=== PATIENT | male | born 1955 | race Caucasian/White ===

== ENCOUNTER 2017-09-26 06:57 | Emergency (ER) | payer OTHER ==
[~2017-09-26] VITALS: Ht 180.3 cm; Wt 95.2 kg
[~2017-09-26 06:57] MED LIST: ASPIRIN325 MG PO; ATENOLOL50 MG PO; LISINOPRIL20 MG PO; REVATIO20 MG PO; SYNTHROID150 MCG PO
[2017-09-26] MEDS ORDERED: CANDESARTAN-HC1 EACH PO (07:09)
--- NOTE | 2017-09-26 19:17 | EKG ---
[facility] [address] [facility] [place] [address] Signed Sinus bradycardia Nonspecific ST and T wave abnormality Abnormal ECG No previous ECGs available Confirmed by GEMA RODRIGUEZ MD ([id number]) on 09/26/2017 7:17:39 PM Electronically Signed By: GEMA RODRIGUEZ MD 09/26/171916 PATIENT NAME: CHARITY MORA Electrocardiogram DATE OF : 55 PHYSICIAN: GEMA RODRIGUEZ MD REPORT #: [id number] REPORT IS CONFIDENTIAL AND NOT TO BE RELEASED WITHOUT AUTHORIZATION
== END 2017-09-26 08:23 | disposition home or self-care (01) ==
LOC: ED 06:57
DX: R55 Syncope and collapse (principal); R25.2 Cramp and spasm; Z88.8 Allergy status to other drugs, medicaments and biological substances; Z88.2 Allergy status to sulfonamides; Z79.899 Other long term (current) drug therapy
CPT/HCPCS: 80053; 84484; 85025; 93005; 93010; 99284; J7040

== ENCOUNTER 2020-01-13 07:02 | Day surgery (SDC) | payer MEDICARE, BC ==
[~2020-01-13] VITALS: Ht 180.3 cm; Wt 83.9 kg
[~2020-01-13 07:02] MED LIST changes: +CANDESARTAN-HC1 EACH PO
--- NOTE | 2020-01-13 07:56 | NUR ---
PT HERE FOR ROUTINE SCOPE-HAS HAD PREVIOUS. IN SUPPORT,HAD FEW QUESTIONS. OMAR MOAR IN TO PREP PT, EXTENDED A BLESSING, WILL FOLLOW NEEDED
[2020-01-13] MEDS ORDERED: NORVASC5 MG PO (08:36)
--- NOTE | 2020-01-13 09:23 | NUR ---
01/13/20 0923 Dora Balderas 0918 PT ARRIVED TO PACU ON 3L VIA NC, PT WAKES EASILY TO VERBAL STIMULI AND DENIES PAIN. PT REORIENTED TO PACU AND ENCOURAGED TO PASS GAS/AIR. PT FALLS EASILY BACK TO SLEEP. VSS.
--- NOTE | 2020-01-14 09:13 | OR ---
[facility] [address] [place], [place] [address] Signed DATE OF OPERATION: 01/13/2020 SURGEON: Mary Beth Cruz MD PREOPERATIVE DIAGNOSIS: Surveillance colonoscopy, history of tubular adenoma in 2014. POSTOPERATIVE DIAGNOSIS: Polyps x2 (right colon and sigmoid). PROCEDURE: Total colonoscopy to cecum with cold morcellation polypectomy x2. ANESTHESIA: Intravenous sedation, fentanyl 100 mcg, Versed 5 mg. INDICATION: A 65-year-old white man, a patient of Dr. Segal, with history of colonoscopy in 2014, at which time a tubular adenoma was resected. He is symptom free and has no family history of colon cancer. He is admitted to undergo surveillance colonoscopy. He understands the risks of bleeding, infection, and perforation. FINDINGS: The prep was excellent. Complete colonoscopy was undertaken of the cecum without question. There was a diminutive polyp of the right colon, which was excised with cold morcellation technique and a hyperplastic-appearing polyp of the sigmoid similarly resected. There was a single internal hemorrhoid as well. DESCRIPTION OF PROCEDURE: The patient was brought to endoscopy suite and placed in lateral decubitus position, given intravenous sedation to the point of slurred speech and nystagmus. Digital rectal examination was normal. An Olympus video colonoscope was passed in the rectum and manipulated throughout the colon, ultimately intubating the cecum itself. The ileocecal valve and appendiceal orifice were normal. The scope was withdrawn and in the mid ascending colon was a diminutive polyp, this was excised with cold morcellation technique. The scope was further withdrawn and no other abnormalities until the sigmoid where a small hyperplastic polyp was noted. This was excised with cold morcellation technique as well. The scope was withdrawn and in retroflexed view visualized a single internal Electronically Signed By: MARY BETH CRUZ MD 01/14/20 0913 PATIENT NAME: CHARITY MORA OPERATIVE REPORT DATE OF : 55 REPORT #: [id number] PHYSICIAN: MARY BETH CRUZ MD PCP: ANIL SEGAL MD REPORT IS CONFIDENTIAL AND NOT TO BE RELEASED WITHOUT AUTHORIZATION [facility] [address] [place], [place] [address] Signed hemorrhoid. The scope was straightened, withdrawn, and removed. The patient was taken to recovery room in good condition. CONCLUDING DIAGNOSES: Polyps x2 and internal hemorrhoid. PLAN: Repeat colonoscopy in 5 years, sooner if clinically indicated. He will return to the ongoing care of Dr. Segal otherwise. MD TOMASZ Hernandez/ERIKAL /[id number] cc: Anil Segal MD Copies: ANIL SEGAL MD ~ Electronically Signed By: MARY BETH CRUZ MD 01/14/20 0913 PATIENT NAME: CHARITY MORA OPERATIVE REPORT DATE OF : 55 REPORT #: [id number] PHYSICIAN: MARY BETH CRUZ MD PCP: ANIL SEGAL MD REPORT IS CONFIDENTIAL AND NOT TO BE RELEASED WITHOUT AUTHORIZATION
== END 2020-01-13 10:13 ==
LOC: DS 07:02 → OPS 07:02
PROVIDERS: Surgery
PROC: 0DBN8ZZ Excision of Sigmoid Colon, Via Natural or Artificial Opening Endoscopic (ICD-10-PCS; 2020-01-13)
PROC: 0DBK8ZZ Excision of Ascending Colon, Via Natural or Artificial Opening Endoscopic (ICD-10-PCS; principal; 2020-01-13 08:30)
DX: Z12.11 Encounter for screening for malignant neoplasm of colon (principal); D12.2 Benign neoplasm of ascending colon; K63.5 Polyp of colon; I10 Essential (primary) hypertension; E03.9 Hypothyroidism, unspecified; F41.9 Anxiety disorder, unspecified; E78.00 Pure hypercholesterolemia, unspecified; L98.9 Disorder of the skin and subcutaneous tissue, unspecified; Z86.010 Personal history of colon polyps; Z88.2 Allergy status to sulfonamides; Z88.8 Allergy status to other drugs, medicaments and biological substances; Z79.899 Other long term (current) drug therapy; Z98.890 Other specified postprocedural states
CPT/HCPCS: 99153; G0500; J2250; J3010; J7121

== ENCOUNTER → 2021-07-23 | Emergency (ER) | payer MEDICARE, BC ==
[~2021-07-23] VITALS: Ht 180.3 cm; Wt 83.9 kg
[~2021-07-23] MED LIST changes: +NORVASC5 MG PO; +OMEPRAZOLE20 MG PO; +PREDNISONE5 MG PO; +SILDENAFIL20 MG PO; +SYNTHROID125 MCG PO
== END | disposition home or self-care (01) ==
LOC: ED 08:26
PROC: 0PSTXZZ Reposition Right Finger Phalanx, External Approach (ICD-10-PCS; principal; 2021-07-23)
DX: S62.612A Displaced fracture of proximal phalanx of right middle finger, initial encounter for closed fracture (principal); S63.282A Dislocation of proximal interphalangeal joint of right middle finger, initial encounter; W18.30XA Fall on same level, unspecified, initial encounter; Y93.73 Activity, racquet and hand sports; I10 Essential (primary) hypertension; E03.9 Hypothyroidism, unspecified; Z88.2 Allergy status to sulfonamides; Z88.1 Allergy status to other antibiotic agents; Z88.8 Allergy status to other drugs, medicaments and biological substances; Z79.84 Long term (current) use of oral hypoglycemic drugs; Z79.899 Other long term (current) drug therapy
CPT/HCPCS: 26725; 73140; 99283-25